=== PATIENT | female | born 1970 | race Caucasian/White ===

== ENCOUNTER 2016-11-07 17:16 | Inpatient (IN) | payer OTHER ==
[~2016-11-07] VITALS: Ht 177.8 cm; Wt 88.6 kg
[~2016-11-07 17:16] MED LIST: ALBUTEROL2.5 MG/3 M IH; ALPRAZOLAM1 MG PO; ALUM-MAG HYDRO360 ML PO; ASPIR 8181 M1 PO; ASPIR-LOW81 MG PO; ATARAX,VISTARIL25 MG PO; CATAPRES0.1 MG PO; CLONAZEPAM1 M1 PO; CLONIDINE HCL0.1 MG PO; COMBIVENT RESPIM4 GM IH; CORGARD40 MG PO; CORTEF10 MG PO; CORTEF5 M1 PO; CYANOCOBALAM1000 MCG PO; CYCLOBENZAPRINE10 MG PO; DAILY VITAMIN1 EAC8 PO; DDAVP NS; DECADRON10 MG/ML 1 IV; DEXAMETHASO4 MG/1 ML IV; DIAZEPAM1 EACH PR; DIAZEPAM10 MG PO; FAMOTIDINE20 MG PO; FLEXERIL10 MG PO; HYDROCORTISONE10 MG PO; HYDROCORTISONE5 MG PO; HYDROXYZINE HCL25 MG PO; INTRINSI B12-F1 EACH PO; KADIAN60 MG PO; KEPPRA1000 MG PO; KEPPRA250 MG PO; KEPPRA500 MG PO; LO-DOSE ASPIRIN81 M1 PO; MORPHINE SULFAT60 MG PO; MS CONTIN,ORAMO60 MG PO; MULTI-DAY VITA1 EACH PO; MULTIVITAMIN1 EAC2 PO; NADOLOL20 MG PO; NADOLOL40 MG PO; NAPROSYN500 MG PO; ONDANSETRON HCL8 MG PO; OXCARBAZEPINE300 MG PO; OXYCODONE HCL15 MG PO; PANTOPRAZOLE SO40 MG PO; PROVENTIL,2.5 MG/3 M IH; SUCRALFATE1 GM/10 ML PO; TIZANIDINE HCL2 M1 PO; TIZANIDINE HCL2 MG PO; TRILEPTAL600 MG PO; VALIUM10 MG PO; VITAMIN D31000 UNIT PO; XANAX1 MG PO; XIFAXAN550 MG PO; ZANAFLEX2 MG PO; ZANTAC150 MG PO; ZITHROMAX Z-PA250 MG PO; ZOFRAN8 MG PO
[2016-11-07 18:29] LABS: HEMATOCRIT 37.1 % (36.0-46.0); MCH 29.3 PG (29.0-34.0); MCV 83.6 FL (83-99); MEAN PLAT.VOLUME 10.7 uM^3 (9.5-12.4); PLATELET COUNT 260 K/uL (156-360); RBC DIS.WIDTH-CV 12.3 % (11.8-14.6); RBC DIS.WIDTH-SD 37.2 % (39-53); RED BLOOD COUNT 4.44 M/uL (3.80-5.20); WHITE BLOOD COUNT 7.3 K/uL (4.1-10.2)
[2016-11-07 18:47] LABS: CHLORIDE 103 mEq/L (99-109); POTASSIUM 4.1 mEq/L (3.7-5.4); SODIUM 139 mEq/L (136-147)
[2016-11-07 18:49] LABS: GLUCOSE 80 mg/dL (70-99)
[2016-11-07 18:51] LABS: ANION GAP 9 MEQ/L (2-14); TOTAL BILIRUBIN 0.5 mg/dL (0.0-1.0)
[2016-11-07 18:53] LABS: ALKALINE PHOSPHATASE 97 IU/L (3-129); GFR ESTIMATE (CALCULATED) > 59 mL/min/
[2016-11-07 18:54] LABS: UREA NITROGEN (BUN) 11 mg/dL (9-23)
[2016-11-07 19:03] LABS: QUANTITATIVE HCG < 4.0 MIU/ML
[2016-11-07 22:39] LABS: LIPASE 26 U/L (1.0-51.0)
[2016-11-07 22:40] LABS: CREATINE KINASE 52 IU/L (1-294)
[2016-11-07 22:46] LABS: TROP-I INTERPRETATION NEGATIVE; TROPONIN-I < 0.01 ng/mL (0.0-0.30)
[2016-11-08 01:31] LABS: ADD MIUA? NO; BILIRUBIN NEGATIVE; BLOOD NEGATIVE; COLOR YELLOW ((YELLOW)); GLUCOSE (STRIP) NEGATIVE; KETONES 5; LEUKOCYTES NEGATIVE; NITRITE NEGATIVE; PROTEIN (STRIP) NEGATIVE; SPECIFIC GRAVITY 1.028 (1.000-1.030); UCUL ADDED? NO; UROBILINOGEN 0.2 MG/DL (0.2-1.0)
[2016-11-08 05:38] VITALS: BP 125/84
[2016-11-08] MEDS ORDERED: ATARAX,VISTARIL50 MG PO (06:19)
[2016-11-08] MEDS ORDERED: ATARAX,VISTARIL25 MG PO (06:20)
[2016-11-08 08:18] VITALS: BP 113/73
[2016-11-08 16:00] VITALS: BP 131/88
[2016-11-09 00:02] VITALS: BP 148/79
[2016-11-09 07:57] VITALS: BP 132/85
[2016-11-09 09:32] LABS: EOSINOPHIL (%) 1.6 % (0-5); EOSINOPHIL COUNT 0.1 K/uL (0-0.3); HEMATOCRIT 33.7 % (36.0-46.0); IMMATURE GRANULOCYTE (%) 0.3 % (0.0-0.7); INSTRUMENT ABS NEUTROPHIL CT 3.9 K/uL; LYMPHOCYTE COUNT 2.7 K/uL (1.0-2.8); MCHC 34.7 G/DL (30.0-36.0); MCV 83.6 FL (83-99); MONOCYTE (%) 7.3 % (3-12); MONOCYTE COUNT 0.5 K/uL (0-0.8); NEUTROPHIL (%) 53.4 % (45-76); NEUTROPHIL COUNT 3.9 K/uL (1.8-6.4); PLATELET COUNT 209 K/uL (156-360); RBC DIS.WIDTH-CV 12.2 % (11.8-14.6); RBC DIS.WIDTH-SD 37.1 % (39-53); RED BLOOD COUNT 4.03 M/uL (3.80-5.20); WHITE BLOOD COUNT 7.4 K/uL (4.1-10.2)
[2016-11-09 10:03] LABS: ALKALINE PHOSPHATASE 67 IU/L (3-129); ANION GAP 8 MEQ/L (2-14); CHLORIDE 105 MEQ/L (99-109); DIRECT BILIRUBIN 0.1 mg/dL (0.0-0.3); GFR ESTIMATE (CALCULATED) > 59 mL/min/; GLUCOSE 88 mg/dL (70-99); POTASSIUM 3.7 MEQ/L (3.7-5.4); SAMPLE HEMOLYSIS CHECK 0; SAMPLE ICTERIC CHECK 0; SAMPLE LIPEMIA CHECK 0; SODIUM 140 MEQ/L (136-147); TOTAL BILIRUBIN 0.4 MG/DL (0.0-1.0); UREA NITROGEN (BUN) 9 mg/dL (9-23)
[2016-11-09 11:42] VITALS: BP 166/82
[2016-11-09 15:04] VITALS: BP 165/92
[2016-11-09] MEDS ORDERED: ERGOCALCIF50000 UNIT PO (16:14)
[2016-11-09] MEDS ORDERED: KEPPRA250 MG PO (16:21)
[2016-11-09 23:47] VITALS: BP 137/85
[2016-11-10 02:13] LABS: CHLORIDE 106 mEq/L (99-109); POTASSIUM 3.5 mEq/L (3.7-5.4); SODIUM 140 mEq/L (136-147)
[2016-11-10 02:15] LABS: GLUCOSE 107 mg/dL (70-99); INTER. NORMALIZED RATIO 1.3; PROTHROMBIN TIME 13.4 (9.2-11.2); PTT 33.6 (25-32)
[2016-11-10 02:16] LABS: ANION GAP 13 MEQ/L (2-14)
[2016-11-10 02:18] LABS: TOTAL BILIRUBIN 0.4 mg/dL (0.0-1.0)
[2016-11-10 02:19] LABS: ALKALINE PHOSPHATASE 78 IU/L (3-129); GFR ESTIMATE (CALCULATED) > 59 mL/min/
[2016-11-10 02:20] LABS: UREA NITROGEN (BUN) 6 mg/dL (9-23)
[2016-11-10 02:22] LABS: DIRECT BILIRUBIN 0.2 mg/dL (0.0-0.3)
[2016-11-10 02:23] LABS: LIPASE 14 U/L (1.0-51.0)
[2016-11-10 02:26] LABS: TROP-I INTERPRETATION NEGATIVE; TROPONIN-I < 0.01 ng/mL (0.0-0.30)
[2016-11-10 02:27] LABS: TROP-I INTERPRETATION NEGATIVE; TROPONIN-I < 0.01 ng/mL (0.0-0.30)
[2016-11-10 04:00] VITALS: BP 129/73
[2016-11-10 07:14] VITALS: BP 134/72
[2016-11-10 11:33] VITALS: BP 166/79
[2016-11-10 14:26] LABS: ALKALINE PHOSPHATASE 67 IU/L (3-129); DIRECT BILIRUBIN 0.1 mg/dL (0.0-0.3); TOTAL BILIRUBIN 0.4 MG/DL (0.0-1.0)
[2016-11-10 14:36] LABS: TROP-I INTERPRETATION NEGATIVE; TROPONIN-I < 0.01 ng/mL (0.0-0.30)
[2016-11-10 15:35] VITALS: BP 151/89
[2016-11-10 19:25] VITALS: BP 145/88
[2016-11-11 00:20] VITALS: BP 156/92
[2016-11-11 04:00] VITALS: BP 138/84
[2016-11-11 08:59] VITALS: BP 162/94
[2016-11-11 09:09] LABS: EOSINOPHIL (%) 2.1 % (0-5); EOSINOPHIL COUNT 0.2 K/uL (0-0.3); HEMATOCRIT 32.7 % (36.0-46.0); IMMATURE GRANULOCYTE (%) 0.5 % (0.0-0.7); INSTRUMENT ABS NEUTROPHIL CT 5.1 K/uL; LYMPHOCYTE COUNT 2.4 K/uL (1.0-2.8); MCH 29.1 PG (29.0-34.0); MCHC 35.5 G/DL (30.0-36.0); MCV 82.2 FL (83-99); MEAN PLAT.VOLUME 10.9 uM^3 (9.5-12.4); MONOCYTE (%) 9.8 % (3-12); MONOCYTE COUNT 0.8 K/uL (0-0.8); NEUTROPHIL (%) 59.1 % (45-76); NEUTROPHIL COUNT 5.1 K/uL (1.8-6.4); PLATELET COUNT 197 K/uL (156-360); RBC DIS.WIDTH-CV 12.2 % (11.8-14.6); RBC DIS.WIDTH-SD 36.2 % (39-53); RED BLOOD COUNT 3.98 M/uL (3.80-5.20); WHITE BLOOD COUNT 8.6 K/uL (4.1-10.2)
[2016-11-11 09:29] LABS: ALKALINE PHOSPHATASE 53 IU/L (3-129); ANION GAP 10 MEQ/L (2-14); CHLORIDE 103 MEQ/L (99-109); GFR ESTIMATE (CALCULATED) > 59 mL/min/; POTASSIUM 2.9 MEQ/L (3.7-5.4); SAMPLE HEMOLYSIS CHECK 0; SAMPLE ICTERIC CHECK 0; SAMPLE LIPEMIA CHECK 0; SODIUM 140 MEQ/L (136-147); UREA NITROGEN (BUN) 4 mg/dL (9-23)
[2016-11-11 09:41] LABS: GLUCOSE 80 mg/dL (70-99); TOTAL BILIRUBIN 0.5 MG/DL (0.0-1.0)
[2016-11-11 12:32] VITALS: BP 122/79
[2016-11-11 16:59] VITALS: BP 159/93
[2016-11-11 20:46] VITALS: BP 136/102
[2016-11-12] VITALS (7 sets, daily range): BP systolic 125–167; BP diastolic 60–105
[2016-11-12 09:16] LABS: HEMATOCRIT 32.8 % (36.0-46.0); MCH 29.2 PG (29.0-34.0); MCHC 35.7 G/DL (30.0-36.0); MCV 81.8 FL (83-99); PLATELET COUNT 192 K/uL (156-360); RBC DIS.WIDTH-CV 12.1 % (11.8-14.6); RBC DIS.WIDTH-SD 35.4 % (39-53); RED BLOOD COUNT 4.01 M/uL (3.80-5.20); WHITE BLOOD COUNT 7.9 K/uL (4.1-10.2)
[2016-11-12 09:43] LABS: ANION GAP 12 MEQ/L (2-14); CHLORIDE 104 MEQ/L (99-109); GFR ESTIMATE (CALCULATED) > 59 mL/min/; GLUCOSE 86 mg/dL (70-99); SAMPLE HEMOLYSIS CHECK 0; SAMPLE ICTERIC CHECK 0; SAMPLE LIPEMIA CHECK 0; SODIUM 143 MEQ/L (136-147); UREA NITROGEN (BUN) 3 mg/dL (9-23)
[2016-11-12 10:07] LABS: POTASSIUM 3.1 MEQ/L (3.7-5.4)
[2016-11-13] VITALS: BP 126/86
[2016-11-13 04:00] VITALS: BP 129/76
[2016-11-13 07:33] LABS: HEMATOCRIT 32.6 % (36.0-46.0); MCH 29.4 PG (29.0-34.0); MCHC 35.6 G/DL (30.0-36.0); MCV 82.5 FL (83-99); MEAN PLAT.VOLUME 11.1 uM^3 (9.5-12.4); PLATELET COUNT 198 K/uL (156-360); RBC DIS.WIDTH-CV 12.5 % (11.8-14.6); RBC DIS.WIDTH-SD 37.1 % (39-53); RED BLOOD COUNT 3.95 M/uL (3.80-5.20); WHITE BLOOD COUNT 8.4 K/uL (4.1-10.2)
[2016-11-13 07:36] LABS: ANION GAP 7 MEQ/L (2-14); CHLORIDE 104 MEQ/L (99-109); GFR ESTIMATE (CALCULATED) > 59 mL/min/; GLUCOSE 89 mg/dL (70-99); POTASSIUM 3.5 MEQ/L (3.7-5.4); SAMPLE HEMOLYSIS CHECK 0; SAMPLE ICTERIC CHECK 0; SAMPLE LIPEMIA CHECK 0; SODIUM 141 MEQ/L (136-147); UREA NITROGEN (BUN) 4 mg/dL (9-23)
[2016-11-13 08:27] VITALS: BP 131/89
[2016-11-13 13:15] VITALS: BP 115/59
[2016-11-13 17:15] VITALS: BP 125/82
[2016-11-13 19:45] VITALS: BP 129/89
[2016-11-14 00:10] VITALS: BP 139/99
[2016-11-14 04:20] VITALS: BP 134/79
[2016-11-14 06:20] LABS: HEMATOCRIT 33.4 % (36.0-46.0); MCH 28.7 PG (29.0-34.0); MCHC 34.4 G/DL (30.0-36.0); MCV 83.3 FL (83-99); MEAN PLAT.VOLUME 11.1 uM^3 (9.5-12.4); PLATELET COUNT 198 K/uL (156-360); RBC DIS.WIDTH-CV 12.6 % (11.8-14.6); RBC DIS.WIDTH-SD 37.1 % (39-53); RED BLOOD COUNT 4.01 M/uL (3.80-5.20)
[2016-11-14 06:42] LABS: ANION GAP 7 MEQ/L (2-14); CHLORIDE 102 MEQ/L (99-109); GFR ESTIMATE (CALCULATED) > 59 mL/min/; GLUCOSE 88 mg/dL (70-99); POTASSIUM 3.6 MEQ/L (3.7-5.4); SAMPLE HEMOLYSIS CHECK 0; SAMPLE ICTERIC CHECK 0; SAMPLE LIPEMIA CHECK 0; SODIUM 139 MEQ/L (136-147); UREA NITROGEN (BUN) 8 mg/dL (9-23)
[2016-11-14 08:07] VITALS: BP 133/80
[2016-11-14] MEDS ORDERED: OXCARBAZEPINE300 MG PO (08:50)
[2016-11-14] MEDS ORDERED: LEVETIRACETAM750 MG PO (08:50)
[2016-11-14] MEDS ORDERED: DOXYCYCLINE HY100 M3 PO (08:50)
[2016-11-14] MEDS ORDERED: HYDROCORTISONE20 MG PO (08:50)
[2016-11-14] MEDS ORDERED: PANTOPRAZOLE SO40 MG PO (08:50)
== END 2016-11-14 12:21 | disposition home or self-care (01) | DRG 392 ==
LOC: EME 17:16 → EDOF 11-08 03:41 → 4SOUTH 11-08 05:22
PROVIDERS: Family Medicine; Hospitalist
DX: A08.4 Viral intestinal infection, unspecified (principal); J96.10 Chronic respiratory failure, unspecified whether with hypoxia or hypercapnia; E27.1 Primary adrenocortical insufficiency; G90.3 Multi-system degeneration of the autonomic nervous system; K29.70 Gastritis, unspecified, without bleeding; G40.909 Epilepsy, unspecified, not intractable, without status epilepticus; I10 Essential (primary) hypertension; G20 Parkinson's disease; G89.4 Chronic pain syndrome; R07.9 Chest pain, unspecified; R26.2 Difficulty in walking, not elsewhere classified; E11.9 Type 2 diabetes mellitus without complications; Z99.81 Dependence on supplemental oxygen; F32.9 Major depressive disorder, single episode, unspecified; K59.09 Other constipation; N31.9 Neuromuscular dysfunction of bladder, unspecified; R11.2 Nausea with vomiting, unspecified; Z88.0 Allergy status to penicillin; Z88.8 Allergy status to other drugs, medicaments and biological substances; E87.6 Hypokalemia; E86.0 Dehydration; R19.7 Diarrhea, unspecified; Z99.3 Dependence on wheelchair; R10.9 Unspecified abdominal pain; F41.1 Generalized anxiety disorder; Z87.891 Personal history of nicotine dependence; K04.7 Periapical abscess without sinus
CPT/HCPCS: 71010; 74177; 80048; 80053; 80076; 81003; 82550; 83605; 83690; 84132 91; 84484; 84702; 85025; 85027; 85610; 85730; 87040; 87493; 93005; 94799; 99281; 99285; C9113; J1170; J1652; J1720; J1953; J2060; J2405; J3010; J3480; J7030; J7050; S0028

== ENCOUNTER 2017-05-13 11:22 | Emergency (ER) | payer OTHER ==
[~2017-05-13] VITALS: Ht 177.8 cm; Wt 81.8 kg
[~2017-05-13 11:22] MED LIST changes: +ATARAX,VISTARIL50 MG PO; +DOXYCYCLINE HY100 M3 PO; +ERGOCALCIF50000 UNIT PO; +HYDROCORTISONE20 MG PO; +LEVETIRACETAM750 MG PO
[2017-05-13 13:06] LABS: INFLUENZA A VIRAL ANTIGEN NEGATIVE; INFLUENZA B VIRAL ANTIGEN NEGATIVE
[2017-05-13 13:28] LABS: EOSINOPHIL (%) 1.3 % (0-5); EOSINOPHIL COUNT 0.1 K/uL (0-0.3); HEMATOCRIT 38.9 % (36.0-46.0); IMMATURE GRANULOCYTE (%) 0.3 % (0.0-0.7); INSTRUMENT ABS NEUTROPHIL CT 7.6 K/uL; LYMPHOCYTE COUNT 1.8 K/uL (1.0-2.8); MCH 28.6 PG (29.0-34.0); MCHC 34.4 G/DL (30.0-36.0); MCV 83.1 FL (83-99); MONOCYTE (%) 9.5 % (3-12); NEUTROPHIL COUNT 7.6 K/uL (1.8-6.4); PLATELET COUNT 232 K/uL (156-360); RBC DIS.WIDTH-CV 12.2 % (11.8-14.6); RBC DIS.WIDTH-SD 37.3 % (39-53); RED BLOOD COUNT 4.68 M/uL (3.80-5.20); WHITE BLOOD COUNT 10.6 K/uL (4.1-10.2)
[2017-05-13 13:36] LABS: CHLORIDE 98 mEq/L (99-109); POTASSIUM 4.1 mEq/L (3.7-5.4); SODIUM 135 mEq/L (136-147)
[2017-05-13 13:39] LABS: GLUCOSE 123 mg/dL (70-99)
[2017-05-13 13:40] LABS: ANION GAP 9 MEQ/L (2-14)
[2017-05-13 13:41] LABS: TOTAL BILIRUBIN 0.6 mg/dL (0.0-1.0)
[2017-05-13 13:42] LABS: ALKALINE PHOSPHATASE 87 IU/L (3-129); GFR ESTIMATE (CALCULATED) > 59 mL/min/
[2017-05-13 13:43] LABS: UREA NITROGEN (BUN) 9 mg/dL (9-23)
[2017-05-13 13:48] LABS: TROP-I INTERPRETATION NEGATIVE; TROPONIN-I < 0.01 ng/mL (0.0-0.30)
[2017-05-13 15:49] LABS: ADD MIUA? YES; BILIRUBIN NEGATIVE; BLOOD SMALL; COLOR YELLOW ((YELLOW)); GLUCOSE (STRIP) NEGATIVE; KETONES NEGATIVE; LEUKOCYTES NEGATIVE; NITRITE NEGATIVE; PROTEIN (STRIP) NEGATIVE; SPECIFIC GRAVITY 1.009 (1.000-1.030); UROBILINOGEN 0.2 MG/DL (0.2-1.0)
[2017-05-13 15:57] LABS: BACTERIA RARE /HPF; EPITHELIAL CELLS RARE /HPF; MUCUS NONE SEEN /LPF; RED BLOOD CELLS 0-5 /HPF (0-5); UCUL ADDED? NO; WHITE BLOOD CELLS 0-5 /HPF (0-5)
[2017-05-13 17:10] VITALS: BP 147/88
== END 2017-05-13 17:16 | disposition home or self-care (01) ==
LOC: EME 11:22
PROVIDERS: Emergency Medicine
DX: R50.9 Fever, unspecified (principal); M25.511 Pain in right shoulder; G90.3 Multi-system degeneration of the autonomic nervous system; G20 Parkinson's disease; I11.0 Hypertensive heart disease with heart failure; I50.9 Heart failure, unspecified; J44.9 Chronic obstructive pulmonary disease, unspecified; I25.10 Atherosclerotic heart disease of native coronary artery without angina pectoris; I25.2 Old myocardial infarction; K21.9 Gastro-esophageal reflux disease without esophagitis; F32.9 Major depressive disorder, single episode, unspecified; F41.9 Anxiety disorder, unspecified; Z86.73 Personal history of transient ischemic attack (TIA), and cerebral infarction without residual deficits; Z88.0 Allergy status to penicillin
CPT/HCPCS: 71010; 73030; 80053; 81003; 83605; 84484; 85025; 87040; 87502; 93005; 94640; 99281; 99285; J2270; J7030